=== PATIENT | male | born 1945 | race Caucasian/White ===

== ENCOUNTER → 2019-04-10 07:52 | Outpatient (CLI) | payer MEDICARE | END | disposition home or self-care (01) | LOC: D.HCCARDIO 07:52 | PROVIDERS: ATTEND Internal Medicine Cardiovascular Disease | DX: I20.9 Angina pectoris, unspecified (principal) ==

== ENCOUNTER 2019-04-30 07:08 | Outpatient (CLI) | payer MEDICARE ==
[~2019-04-30] VITALS: Ht 172.7 cm; Wt 90.9 kg
--- NOTE | ~2019-04-30 | HEMODYNAMI ---
PATIENT:LUIS HILL JR MEDICAL RECORD: [id number] : 45 LOCATION:[facility] ADMISSION DATE: 04/30/19 Generatedon:04/30/201910:03 Patient name: LUIS HILL Patient #: [id number] SSN: DO B: 1945 Date of study: 04/30/2019 Page: Of Hemodynamic Procedure Report Patient Data Patient Demographics Procedure consent was obtained First Name: LUIS Gender: Male Last Name: LIZ Suffix: Patient #: [id number] : 1945 Age: 73 year(s) Accession #: Race: Unknown [id number] Additional ID: [id number] Contact details [address]: [address] [place] [address] lane State: [place] City: [place] Zip code: [address] Past Medical History Performed procedures and imaging results Date Procedure Procedure Results Comments Stress testing with Positive SPECT MPI Allergies Allergen Reaction Date Comments Reported Penicillins 04/30/2019 Admission Admission Data Admission Date: 04/30/2019 Admission Time: 7:08 Arrival Date: 04/30/2019 Arrival Time: 0:00 Admit Source: Other Insurance Payor: Medicare [facility] #: [id number] Height (in.): 67.72 BSA: 2.04 (m2) Height (cm.): 172 BMI: 30.76 (kg/m2) Weight (lbs.): 200.62 Weight (kg.): 91 Lab Results Lab Result Date: 04/30/2019 Lab Result Time: 0:00 Biochemistry Name Units Result Min Max BUN mg/dl 22 --(----)-* 7 18 Creatinine mg/dl 1.6 --(----)-* 0.6 1.3 eGFR ml/min 45 *-(----)-- 90 120 NONAFRICAN CBC Name Units Result Min Max Hematocrit % 41.5 -*(----)-- 42 54 Hemoglobin g/dl 15 --(-*--)-- 13.5 17.5 Procedure Procedure Types Cath Procedure Diagnostic Procedure LHC Coronaries only Aortic Root Angiography Sedation Charges Moderate Sedation up to 15 minutes Procedure Description Procedure Date Procedure Date: 04/30/2019 Procedure Start Time: 9:43 Procedure End Time: 10:02 Procedure Staff Name Function Christopher Lee MD Performing Physician Lesli Ferguson RT Monitor Suzan Taylor RT Scrub Rupert Villatoro RT Scrub Inocencio Hamilton RN Nurse Procedure Data Cath Procedure Fluoroscopy Diagnostic fluoroscopy Total fluoroscopy Time: 5.1 time: 5.1 min min Diagnostic fluoroscopy Total fluoroscopy dose: 763 dose: 763 mGy mGy Contrast Material Contrast Material Type Amount (ml) Isovue 300 85 Entry Location Entry Primary Successful Side Size Upsize Upsize Entry Closure Jesus ccessful Closure Location (Fr) 1 (Fr) 2 (Fr) Remarks Device Remarks Radial Right 6 Fr Mechanical artery Short Compression Estimated blood loss: 10 ml Diagnostic catheters Device Type Used For End Catheter Placement DIAGNOSTIC Brainard 110cm 5 Procedure Fr catheter ([id number]) DIAGNOSTIC Pigtail 5Fr Procedure catheter ([id number]) Procedure Complications No complications Procedure Medications Medication Administration Route Dosage Oxygen etCO2 Nasal cannula 2 l/min Lidocaine 2% added to field 20 Heparin Flush Bag added to field 2 bags (1000units/500ml NS) 0.9% NaCl I.V. 100 ml/hr Radial Cocktail I.A. 1 syringe (Verapamil 2mg/Nitro 400mcg/Heparin 1500units) Versed I.V. 1 mg Versed I.V. 1 mg Fentanyl I.V. 50 mcg Fentanyl I.V. 50 mcg Hemodynamics Rest BSA: 2.04 (m2) HGB: 15 (g/dl) O2 Consumption: Estimated: 230.61 (ml/min) O2 Cons umption indexed: Estimated:113.04 (ml/min/m) Heart Rate: 64 (bpm) Snapshots Pre Cath Intra NCS Post Cath Vital Signs Time Heart Resp SPO2 etCO2 NIBP Rhythm Pain Sedation Rate (ipm) (%) (mmHg) (mmHg) Status Level (bpm) 9:29:53 62 12 94 0 130/78(93) NSR 0 (11) 10(A) , No pain 9:34:07 64 13 94 34.4 121/69(99) NSR 0 (11) 10(A) , No pain 9:38:18 64 13 97 0 121/74(89) NSR 0 (11) 10(A) , No pain 9:42:29 66 12 96 19.4 123/66(87) NSR 0 (11) 9(A) , No pain 9:46:43 67 10 95 0 118/63(79) NSR 0 (11) 9(A) , No pain 9:50:51 70 10 95 12.7 112/58(77) NSR 0 (11) 9(A) , No pain 9:54:59 76 16 97 25.4 112/68(92) NSR 0 (11) 10(A) , No pain 9:59:09 67 14 98 36.7 118/60(85) NSR 0 (11) 10(A) , No pain Medications Time Medication Route Dose Verified Delivered Reason Notes Effectiveness by by 9:28:59 Oxygen etCO2 2 l/min Christopher Buffie used for Nasal Jesus Hamilton RN procedure cannula 9:29:07 Lidocaine 2% added 20ml Christopher Christopher for local to vial Jesus Lee MD anesthetic field 9:29:13 Heparin Flush added 2 bags Christopher Christopher used for Bag to Jesus Lee MD procedure (1000units/500ml field NS) 9:29:24 0.9% NaCl I.V. 100 Christopher Buffie Per ml/hr Jesus Hamilton RN physician 9:36:20 Versed I.V. 1 mg Christopher Buffie for sedation Jesus Hamilton RN 9:36:27 Fentanyl I.V. 50 mcg Christopher Buffie for sedation Jesus Hamilton RN 9:46:32 Radial Cocktail I.A. 1 Christopher Christopher for (Verapamil syringe Jesus Lee MD vasodilation 2mg/Nitro 400mcg/Heparin 1500units) 9:47:21 Versed I.V. 1 mg Christopher Buffie for sedation Jesus Hamilton RN 9:47:28 Fentanyl I.V. 50 mcg Christopher Buffie for sedation Jesus Hamilton RN Procedure Log Time Note 9:09:41 Procedure Status Elective Heart Cath (OP). 9:09:42 Time tracking: Regular hours (M-F 7:00 - 5:00) 9:09:50 Plan of Care:Hemodynamics will remain stable., Cardiac rhythm will remain stable., Comfort level will be maintained., Respiratory function will remain adequate., Patient/ family verbilizes understanding of procedure., Procedure tolerated without complication., Recovers from procedure without complications.. 9:09:51 Signed procedure consent form obtained from patient. 9:10:04 H&P Date Dictated: 03/31/2019 Within 30 days and on chart., H&P Addendum completed by physician on day of procedure. (MUST COMPLETE FOR ALL OUTPATIENTS). 9:10:10 Patient allergic to Penicillins 9:10:52 Patient Weight : 200.62 lbs 9:11:02 Patient Height : 67.72 inches 9:11:34 Lab Result : eGFR NONAFRICAN 45 ml/min 9:11:34 Lab Result : Hemoglobin 15 g/dl 9::34 Lab Result : BUN 22 mg/dl 9::34 Lab Result : Creatinine 1.6 mg/dl 9:11:34 Lab Result : Hematocrit 41.5 % 9:12:57 Suzan LARKIN(R) sent for patient. Start room use. 9:15:50 Arrival Date: 04/30/2019 12:00:00 AM 9:16:10 Insurance Payor : Medicare 9:16:14 Admit Source: Other 9:16:24 Diagnostic Cath Status : Elective 9:16:25 PCI Cath Status : Elective 9:20:36 Patient received from Pre/Post Procedure Room to CCL 1 Alert and oriented. Tansferred to table in Supine position. 9:20:37 Warm blankets applied, and trey hugger turned on for patient comfort. 9:20:38 Correct patient and procedure confirmed by team. 9:20:39 ECG and BP/O2 sat monitors applied to patient. 9:23:15 Pre-procedure instructions explained to patient. 9:23:16 Pre-op teaching completed and patient verbalized understanding. 9:23:19 Family in waiting room. 9:23:20 Patient NPO since Midnight. 9:23:24 Is the patient allergic to Iodine/contrast media? No. 9:23:59 Is patient on blood thinner?No 9:24:03 ACC The patient was administered the following blood thiners within the last 24 hours: None 9:25:21 Patient diabetic? No. 9:25:25 Previous problem with sedation/anesthesia? No ? 9:25:27 Snore? Yes 9:25:29 Sleep apnea? No 9:25:30 Deviated septum? No 9:25:32 Opens mouth fully? Yes 9:25:32 Sticks out tongue? Yes 9:25:44 Airway obstruction? Yes Asthma 9:25:49 Dentures? No ? 9:25:54 Pre procedure: right dorsailis pedis pulse 1+ Palpable, but thready & weak; easily obliterated 9:26:00 Modified Kalin's test Ulnar < 7 seconds 9:26:01 Patient pain scale 0/10 ?. 9:26:07 IV patent on arrival in left antecubital with 0.9% NaCl at [facility]. 9:26:13 Lab results completed and on chart. 9:26:46 Right groin area was prepped with chlora-prep and draped in sterile fashion 9:26:47 Alarms reviewed by R. N. 9:26:48 Sharps counted by scrub and verified by R.N. 9:27:00 Use device set Radial Dx or PCI 9:27:02 Tegaderm 4 x 4 (1626W) opened to sterile field. 9:27:03 ACIST Manifold (11267) opened to sterile field. 9:27:05 ACIST Hand Control (11131) opened to sterile field. 9:27:06 Bag Decanter (2002S) opened to sterile field. 9:27:06 ACIST Syringe (41992) opened to sterile field. 9:27:07 Medline Cath Pack ([id number]) opened to sterile field. 9:27:08 MBrace Wrist Support ([id number]) opened to sterile field. 9:27:15 NEEDLE Cook 21G 4cm Radial (I43603) opened to sterile field. 9:27:23 EMERALD Guide Wire (502-803) opened to sterile field. 9:27:23 SHEATH 6FR RAIN ([id number]) opened to sterile field. 9:28:49 Vital chart was started 9:28:59 Oxygen 2 l/min etCO2 Nasal cannula was administered by Inocencio Hamilton RN; used for procedure; 9:29:07 Lidocaine 2% 20ml vial added to field was administered by Christopher Lee MD; for local anesthetic; 9:29:13 Heparin Flush Bag (1000units/500ml NS) 2 bags added to field was administered by Christopher Lee MD; used for procedure; 9:29:24 0.9% NaCl 100 ml/hr I.V. was administered by Inocencio Hamilton RN; Per physician; 9:30:43 Baseline sample Acquired. ::48 Rhythm: sinus rhythm 9::49 Full Disclosure recording started 9:35:48 --------ALL STOP TIME OUT------ 9:35:49 Final Timeout: patient, procedure, and site verified with staff and physician. All members of the team are in agreement. 9:35:50 Right Radial & Right Groin site verified by team. 9:35:53 Fire Safety Assessment: A--An alcohol-based skin anteseptic being used preoperatively., C--Open oxygen or nitrous oxide is being used., D--An ESU, laser, or fiber-optic light is being used. 9:35:56 Physical assessment completed. ASA score P 2 - A patient with mild systemic disease as per Christopher Lee MD. 9:36:11 3a) 45-59 Moderately reduced kidney function. 9:36:16 Maximum allowable contrast dose (3.7 X eGFR X 0.75)118 ml. 9:36:19 Sedation plan: IV Moderate Sedation Medication:Versed, Fentanyl 9:36:20 Versed 1 mg I.V. was administered by Inocencio Hamilton RN; for sedation; 9:36:27 Fentanyl 50 mcg I.V. was administered by Inocencio Hamilton RN; for sedation; 9:42:32 Procedure started. 9:42:34 Zero performed for pressure channel P1 9:43:15 Local anesthetic to right radial artery with Lidocaine 2% by Christopher Lee MD.INITIAL ACCESS ONLY 9:44:44 A 6 Fr Short sheath was inserted into the Right Radial artery 9:45:31 Baseline sample Acquired. 9:46:06 A DIAGNOSTIC Brainard 110cm 5 Fr catheter ([id number]) was advanced over the wire and used for Procedure. 9:46:32 Radial Cocktail (Verapamil 2mg/Nitro 400mcg/Heparin 1500units) 1 syringe I.A. was administered by Christopher Lee MD; for vasodilation; 9:47:21 Versed 1 mg I.V. was administered by Inocencio Hamilton RN; for sedation; 9:47:28 Fentanyl 50 mcg I.V. was administered by Inocencio Hamilton RN; for sedation; 9:50:32 LCA angiography performed. 9:53:28 RCA angiography performed. 9:53:31 Catheter exchanged over wire. 9:53:54 A DIAGNOSTIC Pigtail 5Fr catheter ([id number]) was advanced over the wire and used for Procedure. 9:55:52 Aortic Root visualized 9:56:45 UNABLE TO CROSS VALVE 9:57:23 Catheter removed. 9:57:47 ZEPHYR REGULAR TR BAND (361820) opened to sterile field. 9:57:55 Procedure ended.(Physican Out) 9:58:07 Sheath removed intact; hemostasis achieved with Mechanical Compression to the Right Radial artery. 10:00:06 Fluoroscopy time 05.10 minutes. 10:00:11 Fluoroscopy dose: 763 mGy 10:00:11 Flurop Dose total: 763 10:00:19 Dose Area Product 78865 mGy/cm. 10:00:25 Contrast amount:Isovue 300 85ml. 10:00:28 Maximum allowable dose exceeded? No. 10:00:29 Sharps counted by scrub and verified by R.N. 10:00:31 TR band inflated with 8cc of air. 10:00:34 Insertion/operative site no bleeding no hematoma. 10:00:37 Post-procedure physical assessment completed. ASA score P 2 - A patient with mild systemic disease as per Christopher Lee MD. 10:00:40 Post procedure rhythm: sinus rhythm 10:00:44 Estimated blood loss: 10 ml 10:00:46 Post procedure instruction explained to patient.Patient verbalizes understanding. 10:00:46 Patient needs reinforcement of post procedure teaching. 10:01:16 Procedure type changed to Cath procedure, Diagnostic procedure, LHC, Coronaries only, Aortic Root Angiography, Sedation Charges, Moderate Sedation up to 15 minutes 10:02:24 Procedure and supply charges have been captured, reviewed, submitted and are correct. 10:02:25 Vital chart was stopped 10::28 Procedure Complication : No complications 10::29 See physician's report for complete and final results. 10:02:31 Report given to Pre/Post Procedure Room. 10:02:33 Patient transfered to Pre/Post Procedure Room with Bed. 10:02:36 Procedure ended. 10:02:36 Full Disclosure recording stopped 10:02:41 End room use (Document Last) Device Usage Item Name Manufacture Quantity Catalog Hospital Part Current Minima l Lot# / Number Charge Number Stock Stock Serial# Code Tegaderm 4 3M 1 1626W [id number] 5 x 4 (1626W) ACIST Acist 1 19673 041824 818715 073083 5 Manifold Medical (34022) Systems Inc ACIST Hand Acist 1 22663 340182 843690 634018 5 Control Medical (28291) Systems Inc Bag Microtek 1 2001S 099342 31195 187489 5 Decanter Medical Inc. (2001S) ACIST Acist 1 97304 965219 169511 996553 20 Syringe Medical (30635) Systems Inc Medline Medline 1 [id number] 676760 29648 080521 5 Cath Pack ([id number]) MBrace Advanced 1 140-0250-00 562162 31644 011628 5 Wrist Vascular Support Dynamics ([id number]) NEEDLE Cook Cook Medical 1 C31865 766618 436662 982041 5 21G 4cm Radial (R39379) EMERALD Cardinal 1 502-455 718899 090070 552335 5 Guide Wire Health (502455) SHEATH 6FR Cardinal 1 7746944 162316 4588257 459822 5 [facility] (2320134) DIAGNOSTIC Terumo 1 40-2943 162103 623170 247318 5 Brainard 110cm 5 Fr catheter (522204) DIAGNOSTIC Cardinal 1 [id number] 035232 783907 514803 5 Pigtail 5Fr Health catheter (048198S) ZEPHYR Cardinal 1 649657 742350 2727068 359661 5 REGULAR TR Health BAND (647167) Signature Audit [place] Stage Time Signature Unsigned Intra-Procedure 04/30/2019 Lesli Ferguson 10:03:37 AM RT(R) Signatures Performing Physician : Signature : Christopher Lee MD Date : Time : Monitor : Lesli Ferguson Signature : RT Date : Time : Nurse : Inocencio Hamilton RN Signature : Date : Time : [address] [place] [address]
[2019-04-30] MEDS ORDERED: COZAAR100 MG PO (07:47)
[2019-04-30] MEDS ORDERED: CARDURA2 MG PO (07:47)
[2019-04-30] MEDS ORDERED: NEXIUM40 MG PO (07:47)
[2019-04-30] MEDS ORDERED: CO Q-10200 MG PO (07:48)
[2019-04-30] MEDS ORDERED: ULTRAM50 MG PO (07:48)
[2019-04-30] MEDS ORDERED: ACETAMINOPHEN500 M1 PO (07:49)
[2019-04-30] MEDS ORDERED: MELATONIN10 M1 PO (07:49)
[2019-04-30] MEDS ORDERED: CLARITIN 10 MG10 MG PO (07:49)
[2019-04-30 08:03] VITALS: BP 154/77; Ht 172.7 cm; Wt 90.9 kg
[2019-04-30 08:11] LABS: BASOPHILS 0.2 % (0-2); EOSINOPHILS 3.5 % (0-7); HEMATOCRIT 41.5 % (42.0-54.0); IMMATURE GRANULOCYTES 0.2 % (0-5); LYMPHOCYTES 29.4 % (15-50); MCH 32.1 pg (26.0-34.0); MCHC 36.1 g/dL (31.0-37.0); MCV 88.7 fL (80.0-100.0); MEAN PLATELET VOLUME 11.7 fL (7.4-10.4); MONOCYTES 13.2 % (2-11); NEUTROPHILS 53.5 % (40-80); PLATELET COUNT 133 10x3/uL (130-400); RBC 4.68 10x6/uL (4.20-6.10); RDW 13.6 % (11.5-14.5); WBC 4.6 10x3/uL (4.8-10.8)
[2019-04-30 08:19] LABS: ANION GAP 9.8 mmol/L (8-16); CALCIUM 9.4 mg/dL (8.5-10.1); CARBON DIOXIDE 29.3 mmol/L (21.0-32.0); CREATININE - SERUM 1.6 mg/dL (0.6-1.3); POTASSIUM - SERUM 4.1 mmol/L (3.5-5.1)
[2019-04-30 08:30] LABS: CHOL - HDL RATIO 5.9 ratio (2.3-4.9); LDL-HDL RATIO 3.3 ratio (1.5-3.5)
--- NOTE | 2019-04-30 10:15 | NUR ---
PT RECEIVED FROM [facility] VIA STRETCHER FOR RECOVERY. PT AWAKE BUT DROWSY. PT DENIES PAIN OR DISCOMFORT. IV PATENT INFUSING VIA ORDERS. ZEPHOR BAND AND IMMOBILIZER TO R WRIST, NO BLEEDING OR HEMATOMA NOTED. ARM PINK AND WARM, CAP REFILL BRISK. DR BUNCH AT DISCUSSING PROCEDURE RESULTS AND PLAN OF CARE. AT BEDSIDE, CALL LIGHT IN REACH
--- NOTE | 2019-04-30 10:45 | NUR ---
PT RESTING COMFORTABLY, DENIES PAIN OR NEEDS. Z BAND IN PLACE, DRESSING CDI NO BLEEDING OR SWELLING NOTED. ARM PINK AND WARM, CAP REFILL BRISK. CALL LIGHT IN REACH, FAMILY AT BEDSIDE
--- NOTE | 2019-04-30 11:15 | NUR ---
Z BAND AIR REMOVAL BEGAN PER PROTOCOL, 3 CC REMOVED W NO BLEEDING OR SWELLING NOTED. VSS. FAMILY REMAIN AT BEDSIDE, CALL LIGHT IN REACH
--- NOTE | 2019-04-30 11:34 | NUR ---
PT SITTING UP VISITING W FAMILY. Z BAND AND IMMOBILIZER IN PLACE, NO BLEEDING OR HEMATOMA NOTED. ARM PINK AND WARM, CAP REFILL BRISK. VSS. FAMILY REMAINS AT BEDSIDE, CALL LIGHT IN REACH.
--- NOTE | 2019-04-30 12:10 | NUR ---
DISCHARGE TEACHING REVIEWED W PT AND FAMILY, THEY VERBALIZED UNDERSTANDING. INSTRUCTED THAT THEY WOULD RECEIVED A CALL FROM DR WANG'S OFFICE FOR AN APPT. IV REMOVED W CATH INTACT. REMAINING AIR REMOVED FROM Z BAND , NO BLEEDING OR HEMATOMA NOTED. MONITORS AND O2 REMOVED. PT UP TO DRESS FOR DISCHARGE
--- NOTE | 2019-04-30 12:21 | NUR ---
PT DISCHARGED VIA WC TO SON WAITING IN PRIVATE VEHICLE. PT HAS ALL BELONGINGS.
== END 2019-04-30 12:20 | disposition home or self-care (01) ==
LOC: D.CATH 07:08
PROVIDERS: ATTEND Internal Medicine Cardiovascular Disease
DX: I25.119 Atherosclerotic heart disease of native coronary artery with unspecified angina pectoris (principal); I35.1 Nonrheumatic aortic (valve) insufficiency; I70.0 Atherosclerosis of aorta; Z01.812 Encounter for preprocedural laboratory examination

== ENCOUNTER 2019-05-08 09:00 | Inpatient (IN) | payer MEDICARE ==
[~2019-05-08] VITALS: Ht 172.7 cm; Wt 89.7 kg
[~2019-05-08 09:00] MED LIST: ACETAMINOPHEN500 M1 PO; CARDURA2 MG PO; CLARITIN 10 MG10 MG PO; CO Q-10200 MG PO; COZAAR100 MG PO; MELATONIN10 M1 PO; NEXIUM40 MG PO; ULTRAM50 MG PO
[2019-05-08] MEDS ORDERED: BANOPHEN25 M1 (10:21)
[2019-05-08] MEDS ORDERED: MAGNESIUM OXID250 MG (10:23)
[2019-05-08] MEDS ORDERED: PROBIOTIC BLEN1 EACH (10:28)
[2019-05-08] MEDS ORDERED: CBD TINCTURE SL (10:30)
[2019-05-08 12:05] LABS: BASOPHILS 0.8 % (0-2); EOSINOPHILS 3.8 % (0-7); HEMATOCRIT 41.4 % (42.0-54.0); HEMOGLOBIN 14.7 g/dL (13.5-17.5); IMMATURE GRANULOCYTES 0.2 % (0-5); LYMPHOCYTES 32.5 % (15-50); MCHC 35.5 g/dL (31.0-37.0); MONOCYTES 12.4 % (2-11); NEUTROPHILS 50.3 % (40-80); PLATELET COUNT 140 10x3/uL (130-400); RDW 13.6 % (11.5-14.5); WBC 4.8 10x3/uL (4.8-10.8)
[2019-05-08 12:16] LABS: APTT 29.6 SECONDS (22.8-39.4); INR 0.96 (0.85-1.17); PROTIME 12.2 SECONDS (11.6-15.0)
[2019-05-08 12:23] LABS: APPEARANCE CLEAR (CLEAR); BILIRUBIN NEGATIVE (NEGATIVE); COLOR YELLOW (YELLOW); GLUCOSE NEGATIVE (NEGATIVE); KETONE NEGATIVE (NEGATIVE); NITRITE NEGATIVE (NEGATIVE); PROTEIN NEGATIVE (NEGATIVE); SPECIFIC GRAVITY 1.015 (1.005-1.020); UROBILINOGEN NORMAL (NORMAL)
[2019-05-08 12:54] LABS: ALBUMIN 3.5 g/dL (3.4-5.0); ANION GAP 12.5 mmol/L (8-16); BILIRUBIN - TOTAL 0.6 mg/dL (0.2-1.3); CALCIUM 8.9 mg/dL (8.5-10.1); CARBON DIOXIDE 29.1 mmol/L (21.0-32.0); CREATININE - SERUM 1.8 mg/dL (0.6-1.3); PHOSPHOROUS 3.2 mg/dL (2.5-4.9); POTASSIUM - SERUM 4.6 mmol/L (3.5-5.1); PROTEIN - SERUM 7.2 g/dL (6.4-8.2); T4 THYROXIN - FREE 0.79 ng/dL (0.76-1.46); THYROID STIMULATING HORMONE 1.77 uIU/mL (0.36-3.74); URIC ACID 5.7 mg/dL (2.6-7.2)
[2019-05-15] VITALS (41 sets, daily range): BP systolic 98–140; BP diastolic 51–70; BMI 30.9
--- NOTE | 2019-05-15 13:55 | NUR ---
ARRIVED IN THE UNIT. PT SEDATED ON THE VENT. ETT 8.0 24 AT THE LIP. SEE VENT SETTINGS PER RT FLOW SHEET. RIGHT IJ SWAN NOTED 46CM AT THE NECK AND SECURED. NSR ON THE MONITOR. MIDSTENAL DRESSING C/D/I. SUBSTERNAL DRESSING C/D/I WITH CT LABLED A AND P NOTED TO 20 CM OF H2O SUCTION WITH NO AIR LEAK NOTED. BLOODY DRAINAGE NOTED. LEFT SUBSTERNAL COLT DRAIN NOTED. COMPRESSED WITH BLOODY DRAINAGE NOTED. 20 GAUGE IV NOTED TO LEFT AC C/D/I AND PATENT. NO S/SX OF INFILTRATION NTOED. LEFT RADIAL DESMOND NOTED WITH THE WRIST PROTECOR ON WT CAP REFILL <3 SECONDS. FC NOTED WITH CLEAR, YELLOW URINE. RLE WRAPPED IN KOBAN FROM ANKLE TO GROIN. PULSES PALPABLE. PT ON PRERNA PLASMALYTE AND DOPAMINE. SEE IV FLOW SHEET. WILL CONT 1:1 CARE.
--- NOTE | 2019-05-15 14:03 | NUR ---
DR WANG AT THE PTS BEDSIDE. WEEN PRERNA AND START NITRO IF POSSIBLE. PARAMETER 90-140
--- NOTE | 2019-05-15 14:10 | NUR ---
GIVE 1 AMP OF HCO3 PER DR WANG.
--- NOTE | 2019-05-15 14:30 | NUR ---
CLARIFIED WITH DR WANG. WEEN DOPAMINE OFF, NO AMIODORONE IV OR PO, ONCE EXTUBATED, DC SWAN-ELLEN CATHETER.
--- NOTE | 2019-05-15 18:29 | NUR ---
PT EXTUBATED PER RT. PT PLACED ON 4L VIA NC. PT TOLERATING WELL. PT INSTRUCTED TO COUGH. VERY WEAK COUGH NOTED. PULLS ABOUT 500 ON HIS IS. CALL LIGHT IN REACH. WILL CONT POC.
--- NOTE | 2019-05-15 19:30 | NUR ---
RECEIVED PATIENT IN BED. AWAKE AND ALERT. ORIENTED X 4 WITH CLEAR SPEECH. MONITORS CONNECTED TO PATIENT WITH ALARMS SET. VSS. ANTERIOR/POSTERIOR CX TUBES INTACT WITH COLLECTION CHAMBER SECURED BELOW PATIENT CONNECTED TO 20CM SUCTION. ASSESSMENT COMPLETED PER FLOW SHEET WITH NO ACUTE DISTRESS OBSERVED AT PRESENT.
--- NOTE | 2019-05-15 21:00 | NUR ---
FAMILY AT BEDSIDE, UPDATE GIVEN. PATIENT AWAKE AND ALERT. VSS
--- NOTE | 2019-05-15 23:00 | NUR ---
REASSESSMENT COMPLETED WITH NO CHANGES OR ACUTE DISTRESS OBSERVED. VSS
[2019-05-16] VITALS (26 sets, daily range): BP systolic 110–134; BP diastolic 47–76; Ht 172.7 cm; Wt 89.7 kg
--- NOTE | 2019-05-16 01:00 | NUR ---
RESTING WITH EYES CLOSED. EASILY ROUSED AND ALERT. VSS. NO ACUTE DISTRESS OBSERVED.
--- NOTE | 2019-05-16 03:00 | NUR ---
RESTING WITH EYES CLOSED, ROUSES EASILY. VSS
[2019-05-16 06:01] LABS: HEMATOCRIT 35.5 % (42.0-54.0); HEMOGLOBIN 12.6 g/dL (13.5-17.5); MCH 31.8 pg (26.0-34.0); MCHC 35.5 g/dL (31.0-37.0); MCV 89.6 fL (80.0-100.0); MEAN PLATELET VOLUME 11.1 fL (7.4-10.4); RBC 3.96 10x6/uL (4.20-6.10); RDW 13.9 % (11.5-14.5); WBC 8.7 10x3/uL (4.8-10.8)
[2019-05-16 06:11] LABS: ALBUMIN 2.4 g/dL (3.4-5.0); ANION GAP 9.5 mmol/L (8-16); BILIRUBIN - TOTAL 0.43 mg/dL (0.2-1.3); CARBON DIOXIDE 31.1 mmol/L (21.0-32.0); CREATININE - SERUM 1.5 mg/dL (0.6-1.3); POTASSIUM - SERUM 4.6 mmol/L (3.5-5.1)
[2019-05-16 06:12] LABS: CALCIUM 6.9 mg/dL (8.5-10.1)
--- NOTE | 2019-05-16 06:20 | NUR ---
SPOKE WITH DR. WANG. NOTIFIED OF LOW CALCIUM NO NEW ORDERS
--- NOTE | 2019-05-16 10:00 | NUR ---
oral care done
--- NOTE | 2019-05-16 12:43 | OP ---
PATIENT NAME: LUIS HILL JR MEDICAL RECORD: [id number] :45 LOCATION:D.CVI D.CV02 ADMISSION DATE:05/15/19 SURGEON: LAUREANO WANG MD DATE OF OPERATION: 05/15/2019 SURGEON: Laureano Wang MD ARMED SECURITY OFFICER: HERNAN Flowers MD and Sandor Israel. OPERATION PERFORMED: 1. Coronary artery bypass graft times 4 (left internal mammary to LAD, reverse saphenous vein graft from aorta to obtuse marginal, from the side of that vein graft to the first diagonal distally, and from aorta to right coronary artery). 2. Endoscopic saphenous vein harvest. PREOPERATIVE DIAGNOSES: Coronary artery disease and aortic stenosis. POSTOPERATIVE DIAGNOSES: Coronary artery disease and aortic stenosis. ANESTHESIA: General endotracheal anesthesia. ESTIMATED BLOOD LOSS: Total cardiopulmonary bypass with Cell Saver retransfusion. COMPLICATIONS: None. SPECIMENS: None. CONDITION: Stable. DISPOSITION: CV ICU. OPERATIVE FINDINGS: 1. Transesophageal echocardiography revealed only mild aortic stenosis with some calcification, but less than one meter per second maximal velocity and greater than 1.8 cm-squared valve area. 2. Good quality greater saphenous vein harvested endoscopically from the right lower extremity, the smallest caliber portion from the lower leg was used for the diagonal graft. 3. Good quality left internal mammary artery. 4. Severe distal disease of all vessels. 5. LAD 1.5 mm. 6. Obtuse marginal 2.0 mm. 7. First diagonal 1.25 mm. 8. Right coronary artery 2.0 mm with a long onlay distal patch. OPERATIVE INDICATION: Coronary artery disease and unstable angina. PROCEDURE NOTE IN DETAIL: The patient was brought to the operating suite. General anesthesia was obtained. The patient was prepped and draped. Greater saphenous vein harvested endoscopically at right lower extremity. Side branch was divided with electrocautery. The vessel was ligated proximal and distally, removed. Side branches were tied. A varicosity in the middle was removed. Thin spots were oversewn. Dr. Flowers performed the vein harvest, inspected the vein, oversewed the thin spot and the use of mri assistant surgeon saved OPERATIVE REPORT [id number] SUZI HILLLeny IVEY approximately 1 hour of general anesthetic time. Median sternotomy incision was made. Subcutaneous tissue was divided with electrocautery. Sternum was divided with a saw. The left hemisternum was elevated. Left pleural cavity was entered. Left internal mammary vein was taken down as a pedicle graft. Sternal retractor was placed. Pericardium was opened. Heparin was given. Aorta was cannulated. Dual stage venous cannula was inserted. Internal mammary clipped distally and made ready for anastomosis. Activated clotting time was appropriately elevated. The patient was placed on cardiopulmonary bypass. The site for distal anastomosis was selected. The patient's temperature was allowed to drift downwardly. Aortic root vent was placed. Cross-clamp was placed. Cardioplegia was given antegrade and this was repeated at 15 to 20 minute intervals during the cross-clamp time including down the completed vein graft. Distal anastomosis was performed in standard technique. Proximal anastomosis with single cross-clamp technique. Aortic root was de-aired by removing the cross-clamp tying the proximal anastomosis, de-airing the vein grafts. Proximal and distal anastomotic sites inspected for bleeding. A single [id number] anastomosis performed from the diagonal graft to the side of the obtuse marginal graft. The patient was fully rewarmed, weaned from cardiopulmonary bypass and was stable. The patient was decannulated. Cannulation sites were oversewn. Protamine was given. The irrigation was undertaken. The graft lay appropriately. Hemostasis was ensured. A drain was placed in the mediastinum and left pleural cavity, one with the tip in the right pleural cavity. The ventricular pacing wires were placed. Pericardial fat was loosely reapproximated. Left chest was evacuated and irrigated. Internal mammary harvest site was inspected for bleeding. Sternum was closed with wires. Fascia was closed. Subcutaneous tissue was closed. Skin was closed. Dermabond was placed. The needle and sponge counts reported as correct. The patient was taken to ICU in stable condition. TRANSINT:[id number] Voice Confirmation ID: [id number] DOCUMENT ID: [id number] LAUREANO WANG MD at 1243 CC: HITESH BUNCH M.D. and SHERRILL HDEZ [id number] DICTATION DATE: 05/15/19 1422 OSHA INSPECTOR: 05/15/19 1510 ADM IN [place] [id number] [place] [address]
--- NOTE | 2019-05-16 17:32 | NUR ---
1300-DR WANG AT BEDSIDE-MORPHINE 2MG IVP GIVEN NOW DIRECTED BY DR WANG PREMED FOR CHEST TUBE REMOVAL-CHEST TUBES REMOVED PER PROTOCOL-R CVL SALINE LOCKED-L RADIAL DESMOND D/C-PER PROTOCOL MAI CATH D/C'D PER PROTOCOL
--- NOTE | 2019-05-16 17:40 | NUR ---
1430-AMBULATED WITH PHYSICAL THERAPY-TOLERATED WELL -ASSISTED TO CHAIR-SR ON MONITOR 1730-FAMILY AT BEDSIDE-
--- NOTE | 2019-05-16 19:30 | NUR ---
REPORT RECEIVED. RECEIVED PATIENT IN BED, AWAKE AND ALERT. ORIENTED X 4. SPEECH CLEAR. MONITORS CONNECTED TO PATIENT WITH ALARMS SET. VSS. CALL LIGHT IN REACH AND ABLE TO UTILIZE TO MAKE NEEDS KNOWN. ASSESSMENT COMPLETED PER FLOW SHEET WITH NO ACUTE DISTRESS OBSERVED AT PRESENT .
[2019-05-17] VITALS (23 sets, daily range): BP systolic 104–129; BP diastolic 47–75
--- NOTE | 2019-05-17 01:00 | NUR ---
AWAKE AND ALERT. VSS
[2019-05-17 06:22] LABS: HEMOGLOBIN 12.6 g/dL (13.5-17.5); MCH 31.3 pg (26.0-34.0); MCHC 34.1 g/dL (31.0-37.0); MEAN PLATELET VOLUME 10.4 fL (7.4-10.4); RBC 4.02 10x6/uL (4.20-6.10); RDW 14.3 % (11.5-14.5); WBC 9.9 10x3/uL (4.8-10.8)
[2019-05-17 06:43] LABS: ALBUMIN 2.5 g/dL (3.4-5.0); ANION GAP 9.8 mmol/L (8-16); BILIRUBIN - TOTAL 0.61 mg/dL (0.2-1.3); CALCIUM 7.1 mg/dL (8.5-10.1); CARBON DIOXIDE 29.9 mmol/L (21.0-32.0); CREATININE - SERUM 1.3 mg/dL (0.6-1.3); POTASSIUM - SERUM 4.7 mmol/L (3.5-5.1); PROTEIN - SERUM 5.7 g/dL (6.4-8.2)
--- NOTE | 2019-05-17 15:04 | NUR ---
0730-RECIEVD UP IN CHAIR-RELUCTANT TO DO INCENTIVE SPIROMETRY-WHEN PRESSED TO DO -AVOIDS 0930-AMBULATED WITH PHYSICAL THERAPY-SEE EMAR FLOW SHEET FOR PAIN MANAGEMENT 1130-ATTEMPTED TO ENCOURAGE INCENTIVE SPIROMETRY USAGE BY PT-PT STRESSED "HRTS TO DO AND HAS TO WAIT- 1145-DR WANG AT BEDSIDE AND PT EXPRESSED LARGE AMOUNT OF PAIN ALONG L LATERAL RIBCAGE-DR WANG STATED NORMAL SURGICAL PAIN-USE PAIN MEDICATION AND CONTINUE WITH WALKING AND INCENTIVE SPIROMETRY-PT STATED I AM TRYING [facility]- [facility]OXYCON[facility] 10MG PO GIVEN PREMED FOR PLANNED PT AMBULATION ATI 1415 1415-PT AT BEDSIDE FOR AMBULATION-PT COMPLIANT
--- NOTE | 2019-05-17 23:00 | NUR ---
1899 REPORT RECEIVED CARE ASSUMED. ASSESSMENT DONE SEE FLOW SHEET. PEDAL PULSES MARKED AND PALP+2. VSS. 2100 MEDS GIVEN PER 2299 REASSESSMENT DONE SEE FLOW SHEET. VSS.
[2019-05-18] VITALS (24 sets, daily range): BP systolic 98–120; BP diastolic 53–71
--- NOTE | 2019-05-18 03:00 | NUR ---
0100 WATER PROVIDED PER REQUEST. VSS. 0300 REASSESSMENT DONE SEE FLOW SHEET VSS. CHG BATH PROVIDED. COMPLETE LINEN CHANGE PROVIDED.
--- NOTE | 2019-05-18 05:00 | NUR ---
DAILY WEIGHT COLLECTED. IO COLLECTED. VSS.
[2019-05-18 05:08] LABS: HEMATOCRIT 33.8 % (42.0-54.0); HEMOGLOBIN 11.6 g/dL (13.5-17.5); MCH 31.4 pg (26.0-34.0); MCHC 34.3 g/dL (31.0-37.0); MCV 91.4 fL (80.0-100.0); RBC 3.7 10x6/uL (4.20-6.10); RDW 13.9 % (11.5-14.5)
[2019-05-18 05:18] LABS: WBC 5.4 10x3/uL (4.8-10.8)
[2019-05-18 06:01] LABS: ALBUMIN 2.2 g/dL (3.4-5.0); BILIRUBIN - TOTAL 0.49 mg/dL (0.2-1.3); CALCIUM 7.5 mg/dL (8.5-10.1); CARBON DIOXIDE 30.2 mmol/L (21.0-32.0); CREATININE - SERUM 1.2 mg/dL (0.6-1.3); POTASSIUM - SERUM 4.2 mmol/L (3.5-5.1); PROTEIN - SERUM 5.7 g/dL (6.4-8.2)
--- NOTE | 2019-05-18 07:00 | NUR ---
REPORT RECIEVED FORM THE OFF GOING RN. SEE ASSESSMENT IN THE PTS FLOW SHEET. PT SITTING OOB IN HIS BEDSIDE CHAIR. VSS. NSR/SINUS TACH ON THE MONITOR. RIGHT IJ CVL NOTED C/D/I AND SL. MIDSTERNAL AND SUBSTERNAL DRESSINGS C/D/I. LEFT COLT DRAIN IS COMPRESSED WITH SEROSANGUINEOUS DRAINAGE. RLE INCISIONS NADIA AND WELL APPROIXMATED. PT INSTRUCTED TO USE HIS IS 10X'S/H. PT PULLS ABOUT 500-1000. DENIES PAIN AT THIS TIME. CALL LIGHT IN REACH. WILL CONT POC.
--- NOTE | 2019-05-18 09:43 | NUR ---
PHYSICAL THERAPY AT THE PTS BEDSIDE WALKING WITH THE PT. PT TOLERATED WELL.
--- NOTE | 2019-05-18 11:34 | NUR ---
NANCY BILLINGS PULLED COLT DRAIN AND TPM WIRES PER DR WANG'S ORDERS. PT LYING IN BED AND TOLERATED WELL. WILL CONT POC.
--- NOTE | 2019-05-18 13:35 | NUR ---
PT ASSISTED OOB AND INTO HIS BEDSIDE CHAIR. LUNCH PROVIDED FOR THE PT. PT VSS. WILL CONT POC.
--- NOTE | 2019-05-18 17:01 | NUR ---
DINNER TRAY PROCIED FOR THE PT. VSS. WILL CONT POC.
--- NOTE | 2019-05-18 17:57 | NUR ---
PT VSS. DENIES PAIN. OOB IN CHAIR TALKING TO HIS FAMILY MEMBERS. IN A CHEETFUL MOOD. CALL LIGHT IN REACH. WILL CONT POC.
--- NOTE | 2019-05-18 18:19 | NUR ---
ASSISTED THE PT TO THE BATHROOM. HE VOIDED AND THEN I ASSISTED HIM BACK INTO HIS BED. PT TOLERATED AMBULATION WELL. CALL LIGHT IN REACH. WILL CONT POC.
--- NOTE | 2019-05-18 18:43 | NUR ---
ORAL CARE DONE WITH PERIDEX
[2019-05-19] VITALS (24 sets, daily range): BP systolic 97–148; BP diastolic 48–78
[2019-05-19 06:05] LABS: HEMATOCRIT 29.6 % (42.0-54.0); HEMOGLOBIN 10.2 g/dL (13.5-17.5); MCH 31.2 pg (26.0-34.0); MCHC 34.5 g/dL (31.0-37.0); MCV 90.5 fL (80.0-100.0); MEAN PLATELET VOLUME 10.4 fL (7.4-10.4); RBC 3.27 10x6/uL (4.20-6.10); RDW 13.9 % (11.5-14.5)
[2019-05-19 06:18] LABS: ANION GAP 9.6 mmol/L (8-16); BILIRUBIN - TOTAL 0.38 mg/dL (0.2-1.3); CALCIUM 7.9 mg/dL (8.5-10.1); CARBON DIOXIDE 30.7 mmol/L (21.0-32.0); CREATININE - SERUM 1.3 mg/dL (0.6-1.3); POTASSIUM - SERUM 4.3 mmol/L (3.5-5.1); PROTEIN - SERUM 5.6 g/dL (6.4-8.2)
--- NOTE | 2019-05-19 07:00 | NUR ---
REPORT RECIEVED FROM THE OFF GOING RN. SEE ASSESSMENT IN THE PTS FLOW SHEET. PT LYING IN BED WHENEVER I ARRIVED. PT ASSISTED OOB. PT SELF AMBULATED WITH A SLOW BUT STEADY GAIT THE BATHROOM AND VOIDED. PT THEN WALKED TO THE BEDSIDE CHAIR. VSS. NSR ON THE MONITOR. RIGHT IJ CVL DRESSING C/D/I. MIDSTERNAL AND SUBSTERNAL DRESSING C/D/I. RLE INCISIONS NADIA AND WELL APPROXIMATED. NO S/SX OF INFECTION NOTED. PT INSTRUCTED TO TCDB Q1H AND TO USE IS 10X'S/H. PT PULLS ABOUT 750 TO 1000 ON HIS IS. BREAKFAST TRAY PROVIDED FOR THE PT. CALL LIGHT IN REACH. WILL CONT POC.
--- NOTE | 2019-05-19 09:35 | NUR ---
PHYSCIAL THEARPY AND THE PT AMBULATED AROUND THE "BIG LOOP". PT TOLERATED WELL. VSS. WILL CONT POC.
--- NOTE | 2019-05-19 10:58 | NUR ---
REASSESSMENT COMPLETED. SEE FLOW SHEET.
--- NOTE | 2019-05-19 12:04 | NUR ---
DR FELIPE CASTANEDA. PLAN FOR DC TOMORROW. DC CVL.
--- NOTE | 2019-05-19 13:16 | NUR ---
Nutrition Follow-up: Pt reports appetite improving. Diet: Cardiac PO intake: 20-40% yesterday Wt: 199# Last BM: 05/19 Labs reviewed Meds reviewed Continue current diet as tolerated. RD following.
--- NOTE | 2019-05-19 14:36 | NUR ---
20 GAUGE IV STARTED IN THE RIGHT AC X1 ATTEMPT. PATENT. CVL DC'D WITH THE CATHETER TIP INTACT. DRESSING APPLIED. WILL CONT POC.
--- NOTE | 2019-05-19 16:00 | MORECARE ---
CASE MANAGEMENT DISCHARGE SUMMARY PATIENT: LUIS HILL JR UNIT: [id number] ADM DATE: 05/15/19 AGE: 73 : 45 SEX: M [facility] AUTHOR: MELCHOR LOPEZ PHYSICIAN: REFERRING PHYSICIAN: MUMTAZ WANG MD DATE OF SERVICE: 05/19/19 Discharge Plan Patient Name: LUIS HILL Facility: [facility]:[place] : 1945 Planned Disposition: Home Anticipated Discharge Date: Discharge Date: Expected LOS: Initial Reviewer: [email or web address] Initial Review Date: 05/19/2019 Generated: 05/19/19 4:59 pm Patient Name: LUIS HILL Page 14742 at 1600 All edits/amendments must be made on the electronic document DICTATION DATE: 05/19/19 1559 CARE ASSISTANT: NICO 05/19/19 1559 RPT#: [id number] DC DATE: STATUS: ADM IN [facility] [address] [place] [address] END OF REPORT
--- NOTE | 2019-05-19 16:21 | MORECARE ---
CASE MANAGEMENT DISCHARGE SUMMARY PATIENT: LUIS HILL JR UNIT: [id number] ADM DATE: 05/15/19 AGE: 73 : 45 SEX: M ROOM/BED: D[facility] AUTHOR: JESSICA,DOC PHYSICIAN: REFERRING PHYSICIAN: MUMTAZ WANG MD DATE OF SERVICE: 05/19/19 Discharge Plan Patient Name: LUIS HILL Facility: [facility]:[place] : 1945 Planned Disposition: Home Anticipated Discharge Date: Discharge Date: Expected LOS: Initial Reviewer: [email or web address] Initial Review Date: 05/19/2019 Generated: 05/19/19 5:20 pm Comments DCP- Discharge Planning Updated by [email or web address]: Jamilah Wen on 05/19/19 3:[address] Patient Name: LUIS HILL Admission Status: Elective Accout number: [id number] Admission Date: 05-15-2019 : 1945 Admission Diagnosis:DISEASE OF PERICARDIUM, UNSPECIFIED Attending: MUMTAZ WANG Current LOS: 4 Anticipated DC Date: Planned Disposition: Home Primary Insurance: [employer] MEDICARE PPO or HMO Discharge Planning Comments: CM met with patient at bedside after explaining CM role and obtaining verbal consent. Patient lives at home with his Vonnie where he is independent with his care and plans to return there upon discharge. Patient feels this would be a safe discharge. CM discussed availability / needs of home health and medical equipment. Patient denies any discharge needs at this time. Patient states he will have his family drive him home upon discharge. CM will continue to follow and assist as needed with discharge planning / needs. Roving Technician: Jamilah Wen DCPIA - Discharge Planning Initial Assessment Updated by [email or web address]: Jamilah Wen on 05/19/19 4:14 pm * Is the patient Alert and Oriented? Yes * How many steps to enter\exit or inside your home? 1-3 * PCP LEMUEL * Pharmacy [facility] * Preadmission Environment Home with Family * ADLs Independent * Other Equipment WALKER, W/C * List name and contact numbers for known caregivers / representatives who currently or will assist patient after discharge: VONNIE -SPOUSE - [phone] * Verbal permission to speak to the caregivers and representatives has been obtained from the patient. Yes * Community resources currently utilized None * Additional services required to return to the preadmission environment? No * Can the patient safely return to the preadmission environment? Yes * Has this patient been hospitalized within the prior 30 days at any hospital? No Last DP export: 05/19/19 3:00 p Patient Name: LUIS HILL Page 12981 at 1621 All edits/amendments must be made on the electronic document DICTATION DATE: 05/19/191619 MANAGER INCOME TAX: NICO 05/19/191619 RPT#: [id number] DC DATE: STATUS: ADM IN [facility] [address] [place] [address] END OF REPORT
--- NOTE | 2019-05-19 16:57 | NUR ---
DINNER TRAY PROVIDED FOR THE PT. VSS. WILL CONT POC.
--- NOTE | 2019-05-19 18:41 | NUR ---
ORAL CARE DONE WITH PERIDEX
[2019-05-20] VITALS (13 sets, daily range): BP systolic 116–140; BP diastolic 58–71
[2019-05-20 05:04] LABS: HEMATOCRIT 30.4 % (42.0-54.0); HEMOGLOBIN 10.4 g/dL (13.5-17.5); MCH 30.9 pg (26.0-34.0); MCHC 34.2 g/dL (31.0-37.0); MCV 90.2 fL (80.0-100.0); MEAN PLATELET VOLUME 10.3 fL (7.4-10.4); RBC 3.37 10x6/uL (4.20-6.10); RDW 13.8 % (11.5-14.5); WBC 3.9 10x3/uL (4.8-10.8)
[2019-05-20 05:34] LABS: ALBUMIN 2.2 g/dL (3.4-5.0); ANION GAP 8.2 mmol/L (8-16); BILIRUBIN - TOTAL 0.49 mg/dL (0.2-1.3); CARBON DIOXIDE 29.8 mmol/L (21.0-32.0); CREATININE - SERUM 1.2 mg/dL (0.6-1.3); PROTEIN - SERUM 5.8 g/dL (6.4-8.2)
--- NOTE | 2019-05-20 08:18 | NUR ---
AM MEDS GIVEN WITH NO ISSUES.
[2019-05-20] MEDS ORDERED: PERCOCET 5-3251 TAB PO (08:58)
[2019-05-20] MEDS ORDERED: LIPITOR10 MG PO (09:21)
[2019-05-20] MEDS ORDERED: PLAVIX75 MG PO (09:21)
[2019-05-20] MEDS ORDERED: ASPIRIN EC81 M1 PO (09:22)
[2019-05-20] MEDS ORDERED: LOPRESSOR25 MG PO (09:22)
[2019-05-20] MEDS ORDERED: COLACE100 MG PO (09:23)
--- NOTE | 2019-05-20 12:00 | NUR ---
AND SON HERE AT THE PTS BEDSIDE. PTS LEFT WITH HER SON BECAUSE HER SON WAS HAVING CHEST PAIN "WE ARE GOING TO THE ER AND WE WILL BE RIGHT BACK."
--- NOTE | 2019-05-20 13:18 | NUR ---
DR WANG AT THE PTS BEDSIDE. DR WANG GOING OVER DISCHARGE INSTRUCTIONS WITH THE PT. OK TO DC HOME TODAY.
--- NOTE | 2019-05-20 14:31 | TEE ---
PATIENT:LUIS HILL JR MEDICAL RECORD: [id number] LOCATION:[place] [address] AGE OF PATIENT: 73 ADMISSION DATE: 05/15/19 SEX: M REFERRING PHYSICIAN: INTERPRETING PHYSICIAN: GREGG RAIN MD TRANSESOPHAGEAL ECHOCARDIOGRAM Date: 05/15/19 LATRICIA CHARGE Y INDICATIONS: CABG, WITH POSSIBLE AVR PREMEDICATIONS: PATIENT'S RESPONSE PROCEDURE DOPPLER MEASUREMENTS: LVIT LA PA RA LVOT RVOT Asc. Ao AV Gradient Peak AV Mean AV Area 1.9 MV Gradient Peak MV Mean MV Area INTERPRETATION: Doppler: 2-D: COLOR FLOW DOPPLER NORMAL SALINE STUDY: MISCELLANOUS: DIAGNOSIS: PLAN: Od Grinder Operator:1 Dr. Rian Devulcanizer Head: Freddy BROWER COMMENTS: WANG AND BUNCH PATIENT DATE OF SERVICE: 05/15/2019 PROCEDURE: Transesophageal echo evaluation of valvular structures during bypass surgery. FINDINGS: 1. Left ventricular chamber size is within normal limits. Left ventricular systolic function is normal. Overall ejection fraction estimated at 60%. 2. Left atrium, right atrium, and right ventricular chamber sizes are within TRANSESOPHAGEAL ECHOCARDIOGRAM REPORT [id number] LUIS HILL normal limits. 3. Valvular structures: Aortic valve demonstrates calcific aortic sclerosis, but there is no aortic stenosis, valve area calculates to 1.9 cm-squared. The remaining valvular structures have normal structure and motion. 4. Doppler interrogation only reveals trace aortic insufficiency. No other valvular insufficiency or stenosis. 5. No evidence of pericardial effusion or left ventricular thrombus. TRANSINT:[id number] Voice Confirmation ID: [id number] DOCUMENT ID: [id number] at 1431 CC: [id number] DICTATION DATE: 05/15/19 1552 GANG PUNCH OPERATOR: 05/16/19 0016 ADM IN [facility] [address] [place] [address]
--- NOTE | 2019-05-20 15:35 | NUR ---
PIV DC'D WITH THE CATHETER TIP INTACT. NANCY BILLINGS ALREAD WENT OVER WITH THE PT DC INSTRUCTIONS. MORE DISCHARGE EDUCATION PROVIDED BY ME. NO QUESTIONS AT THIS TIME. ALL PT BELONGINGS ACCOUNTED FOR. PT LEFT IN A PLEASANT MOOD. VSS AT THE TIME OF DISCHARGE. NO S/SX OF DISTRESS/DISCOMFORT NOTED. WILL CONT POC.
--- NOTE | 2019-05-21 09:26 | MORECARE ---
CASE MANAGEMENT DISCHARGE SUMMARY PATIENT: LUIS HILL JR UNIT: [id number] ADM DATE: 05/15/19 AGE: 73 : 45 SEX: M ROOM/BED: D.[facility] AUTHOR: JESSICA,DOC PHYSICIAN: REFERRING PHYSICIAN: MUMTAZ WANG MD DATE OF SERVICE: 05/21/19 Discharge Plan Patient Name: LUIS HILL Facility: [facility]:[place] : 1945 Planned Disposition: Home Anticipated Discharge Date: Discharge Date: 05/20/2019 Expected LOS: Initial Reviewer: [email or web address] Initial Review Date: 05/19/2019 Generated: 05/21/19 10:25 am Comments DCP- Discharge Planning Updated by [email or web address]: Jamilah Wen on 05/19/19 3:[address] Patient Name: LUIS HILL Admission Status: Elective Accout number: [id number] Admission Date: 05-15-2019 : 1945 Admission Diagnosis:DISEASE OF PERICARDIUM, UNSPECIFIED Attending: MUMTAZ WANG Current LOS: 4 Anticipated DC Date: Planned Disposition: Home Primary Insurance: [employer] MEDICARE PPO or HMO Discharge Planning Comments: CM met with patient at bedside after explaining CM role and obtaining verbal consent. Patient lives at home with his Vonnie where he is independent with his care and plans to return there upon discharge. Patient feels this would be a safe discharge. CM discussed availability / needs of home health and medical equipment. Patient denies any discharge needs at this time. Patient states he will have his family drive him home upon discharge. CM will continue to follow and assist as needed with discharge planning / needs. Front Desk Monitor: Jamilah Wen DCPIA - Discharge Planning Initial Assessment Updated by [email or web address]: Jamilah Wen on 05/19/19 4:14 pm * Is the patient Alert and Oriented? Yes * How many steps to enter\exit or inside your home? 1-3 * PCP LEMUEL * Pharmacy [facility] * Preadmission Environment Home with Family * ADLs Independent * Other Equipment WALKER, W/C * List name and contact numbers for known caregivers / representatives who currently or will assist patient after discharge: VONNIE -SPOUSE - [phone] * Verbal permission to speak to the caregivers and representatives has been obtained from the patient. Yes * Community resources currently utilized None * Additional services required to return to the preadmission environment? No * Can the patient safely return to the preadmission environment? Yes * Has this patient been hospitalized within the prior 30 days at any hospital? No Coverage Notice Reviewer: [email or web address] Jourdan Wen Notice Issued Date-Time: 05/20/2019 13:10 Notice Type: IM Discharge Notice Notice Delivered To: Patient Relationship to Patient: Self Equipment Installer Name: Delivery Method: HAND - Hand Delivered Kerri Days: Prior Verbal Notification: Recipient Understood Notice: Yes Recipient Signature: Yes Med Rec Note Co-signed by Attending: Coverage Notice Comment: Last DP export: 05/19/19 3:21 p Patient Name: LUIS HILL Page 72231 at 0926 All edits/amendments must be made on the electronic document DICTATION DATE: 05/21/19924 CREDIT DIRECTOR: NICO 05/21/19924 RPT#: [id number] DC DATE:05/20/19 STATUS: DIS IN [facility] [address] [place] [address] END OF REPORT
== END 2019-05-20 15:37 | disposition home or self-care (01) | DRG 236 ==
LOC: D.SDCHOLD 10:00 → D.CVICU 05-15 05:17 → D.SDCHOLD 05-15 11:00 → D.CVICU 05-15 12:01
PROVIDERS: ADMIT Thoracic Surgery (Cardiothoracic Vascular Surgery); ATTEND Thoracic Surgery (Cardiothoracic Vascular Surgery)
PROC: 021209W Bypass Coronary Artery, Three Arteries from Aorta with Autologous Venous Tissue, Open Approach (ICD-10-PCS; 2019-05-15)
PROC: 06BP4ZZ Excision of Right Saphenous Vein, Percutaneous Endoscopic Approach (ICD-10-PCS; 2019-05-15)
PROC: B24BZZ4 Ultrasonography of Heart with Aorta, Transesophageal (ICD-10-PCS; 2019-05-15)
PROC: 5A1221Z Performance of Cardiac Output, Continuous (ICD-10-PCS; 2019-05-15)
PROC: 02100Z9 Bypass Coronary Artery, One Artery from Left Internal Mammary, Open Approach (ICD-10-PCS; principal; 2019-05-15 07:30)
DX: I25.119 Atherosclerotic heart disease of native coronary artery with unspecified angina pectoris (principal); I31.9 Disease of pericardium, unspecified; I10 Essential (primary) hypertension; R42 Dizziness and giddiness; I45.10 Unspecified right bundle-branch block; I35.0 Nonrheumatic aortic (valve) stenosis

== ENCOUNTER 2019-06-05 01:33 | Emergency (ER) | payer MEDICARE ==
[~2019-06-05] VITALS: Ht 172.7 cm; Wt 79.5 kg
[~2019-06-05 01:33] MED LIST changes: +ASPIRIN EC81 M1 PO; +BANOPHEN25 M1; +CBD TINCTURE SL; +COLACE100 MG PO; +LIPITOR10 MG PO; +LOPRESSOR25 MG PO; +MAGNESIUM OXID250 MG; +PERCOCET 5-3251 TAB PO; +PLAVIX75 MG PO; +PROBIOTIC BLEN1 EACH
[2019-06-05 01:37] VITALS: Ht 172.7 cm; Wt 79.5 kg
[2019-06-05 02:43] LABS: BASOPHILS 0.5 % (0-2); EOSINOPHILS 8.2 % (0-7); HEMATOCRIT 34.6 % (42.0-54.0); HEMOGLOBIN 11.3 g/dL (13.5-17.5); IMMATURE GRANULOCYTES 0.4 % (0-5); LYMPHOCYTES 22.9 % (15-50); MCHC 32.7 g/dL (31.0-37.0); MCV 91.8 fL (80.0-100.0); MEAN PLATELET VOLUME 9.6 fL (7.4-10.4); MONOCYTES 13.9 % (2-11); NEUTROPHILS 54.1 % (40-80); RBC 3.77 10x6/uL (4.20-6.10); RDW 13.4 % (11.5-14.5); WBC 5.5 10x3/uL (4.8-10.8)
[2019-06-05 02:55] LABS: ALBUMIN 2.9 g/dL (3.4-5.0); ALKALINE PHOSPHATASE 117 U/L (46-116); ALT (SGPT) 32 U/L (10-68); BILIRUBIN - TOTAL 0.36 mg/dL (0.2-1.3); CALC OSMOLALITY 277 mosm/kg (275-300); CALCIUM 8.6 mg/dL (8.5-10.1); CARBON DIOXIDE 30.8 mmol/L (21.0-32.0); CHLORIDE - SERUM 99 mmol/L (98-107); CREATININE - SERUM 1.6 mg/dL (0.6-1.3); GLUCOSE 109 mg/dL (74-106); POTASSIUM - SERUM 3.8 mmol/L (3.5-5.1); PROTEIN - SERUM 7.6 g/dL (6.4-8.2); SODIUM 137 mmol/L (136-145); UREA NITROGEN 20 mg/dL (7-18); eGFR NON AFRICAN AMERICAN 45 mL/min (90-120)
[2019-06-05 02:58] LABS: PLATELET COUNT 339 10x3/uL (130-400)
[2019-06-05 02:59] LABS: APPEARANCE CLEAR (CLEAR); BILIRUBIN NEGATIVE (NEGATIVE); COLOR YELLOW (YELLOW); GLUCOSE NEGATIVE (NEGATIVE); KETONE NEGATIVE (NEGATIVE); NITRITE NEGATIVE (NEGATIVE); PROTEIN NEGATIVE (NEGATIVE); UROBILINOGEN NORMAL (NORMAL)
[2019-06-05 03:06] LABS: CKMB 1.2 U/L (0.0-3.6); CREATINE KINASE 62 UL (21-232); PRO BNP 1213 pg/mL (0-125)
[2019-06-05 03:10] LABS: TROPONIN-I < 0.017 ng/mL (0.000-0.060)
[2019-06-05 05:13] VITALS: BP 133/64
== END 2019-06-05 05:14 | disposition home or self-care (01) ==
LOC: D.ER 01:33
PROVIDERS: Family Medicine
DX: S80.10XA Contusion of unspecified lower leg, initial encounter (principal)

== ENCOUNTER → 2019-06-17 10:41 | Outpatient (CLI) | payer MEDICARE ==
[2019-06-05 01:37] VITALS: BMI 26.6
[2019-06-17 11:07] LABS: BASOPHILS 0.2 % (0-2); EOSINOPHILS 4.4 % (0-7); HEMOGLOBIN 12.2 g/dL (13.5-17.5); IMMATURE GRANULOCYTES 0.2 % (0-5); LYMPHOCYTES 21.2 % (15-50); MCH 29.4 pg (26.0-34.0); MCHC 32.1 g/dL (31.0-37.0); MCV 91.6 fL (80.0-100.0); MEAN PLATELET VOLUME 10.6 fL (7.4-10.4); RBC 4.15 10x6/uL (4.20-6.10); RDW 13.8 % (11.5-14.5); WBC 5.6 10x3/uL (4.8-10.8)
[2019-06-17 11:10] LABS: PLATELET COUNT 237 10x3/uL (130-400)
== END | disposition home or self-care (01) ==
LOC: D.RAD 10:41
PROVIDERS: ATTEND Thoracic Surgery (Cardiothoracic Vascular Surgery)
DX: Z48.89 Encounter for other specified surgical aftercare (principal)

== ENCOUNTER → 2019-07-01 10:23 | Outpatient (CLI) | payer MEDICARE ==
[2019-06-05 01:37] VITALS: BMI 26.6
[2019-07-01 11:23] LABS: BASOPHILS 0.7 % (0-2); EOSINOPHILS 10.5 % (0-7); HEMATOCRIT 40.1 % (42.0-54.0); HEMOGLOBIN 13.2 g/dL (13.5-17.5); LYMPHOCYTES 30.3 % (15-50); MCH 29.4 pg (26.0-34.0); MCHC 32.9 g/dL (31.0-37.0); MCV 89.3 fL (80.0-100.0); MEAN PLATELET VOLUME 10.7 fL (7.4-10.4); MONOCYTES 13.2 % (2-11); NEUTROPHILS 45.3 % (40-80); PLATELET COUNT 191 10x3/uL (130-400); RBC 4.49 10x6/uL (4.20-6.10); RDW 14.1 % (11.5-14.5); WBC 4.6 10x3/uL (4.8-10.8)
[2019-07-01 11:41] LABS: ALBUMIN 3.1 g/dL (3.4-5.0); ANION GAP 10.1 mmol/L (8-16); BILIRUBIN - TOTAL 0.48 mg/dL (0.2-1.3); CALCIUM 8.6 mg/dL (8.5-10.1); CARBON DIOXIDE 30.9 mmol/L (21.0-32.0); CREATININE - SERUM 1.4 mg/dL (0.6-1.3); PROTEIN - SERUM 7.3 g/dL (6.4-8.2)
== END | disposition home or self-care (01) ==
LOC: D.LAB 10:23
PROVIDERS: ATTEND Thoracic Surgery (Cardiothoracic Vascular Surgery)
DX: J90 Pleural effusion, not elsewhere classified (principal); D64.9 Anemia, unspecified

== ENCOUNTER → 2019-07-21 18:10 | Outpatient (CLI) | payer MEDICARE ==
[2019-06-05 01:37] VITALS: BMI 26.6
[2019-07-21 18:38] LABS: CHOL - HDL RATIO 5.1 ratio (2.3-4.9); LDL-HDL RATIO 3.3 ratio (1.5-3.5)
== END | disposition home or self-care (01) ==
LOC: D.LABREF 18:10
PROVIDERS: ATTEND Internal Medicine Cardiovascular Disease
DX: E78.5 Hyperlipidemia, unspecified (principal)

== ENCOUNTER 2020-01-26 07:21 | Day surgery (SDC) | payer MEDICARE ==
[~2020-01-26] VITALS: Ht 172.7 cm; Wt 90.5 kg
[2020-01-26 08:08] LABS: HEMATOCRIT 42.5 % (42.0-54.0); HEMOGLOBIN 14.3 g/dL (13.5-17.5); MCH 30.6 pg (26.0-34.0); MCHC 33.6 g/dL (31.0-37.0); MCV 90.8 fL (80.0-100.0); MEAN PLATELET VOLUME 11.8 fL (7.4-10.4); RBC 4.68 10x6/uL (4.20-6.10); RDW 13.9 % (11.5-14.5); WBC 3.8 10x3/uL (4.8-10.8)
[2020-01-26] MEDS ORDERED: BETAPACE 80 MG80 MG PO (08:12)
[2020-01-26 08:32] VITALS: BP 120/70; Ht 172.7 cm; Wt 90.5 kg
--- NOTE | 2020-01-26 13:50 | OP ---
PATIENT NAME: LUIS HILL JR MEDICAL RECORD: [id number] :[birth year] LOCATION:[facility] ADMISSION DATE: SURGEON: DILCIA LOERA MD DATE OF OPERATION: 01/26/2020 PROCEDURE: EGD with biopsy and colonoscopy with biopsy and polypectomy. REFERRING PHYSICIAN: Sherrill Hdez DO INDICATIONS: Mr. Hill is a very pleasant 74-year-old gentleman with a history of colon polyps and diverticulosis coli. He had been having symptoms of heartburn, nausea, epigastric abdominal pain which started in December 2018. He has had positive H. pylori breath test and was treated for H. pylori twice in December 2018 and again in February of 2019. Prior to the treatment for H. pylori, he was having some intermittent loose stools. He is still having some mild epigastric pain. He is having less diarrhea. He has been having some hematochezia with bowel movements. His last colonoscopy was 03/28/2016 with finding showing diverticulosis coli, hyperplastic colorectal polyps and mild internal hemorrhoids. He presents for outpatient EGD and colonoscopy. PREMEDICATIONS: Total IV anesthesia (propofol 500 mg); history of coronary artery disease. INSTRUMENT: IroFit video gastroscope and IroFit video colonoscope, pediatric. PROCEDURE AND FINDINGS: After receiving informed consent, his posterior pharynx was anesthetized with Cetacaine spray. He was placed in left lateral decubitus position and sedated as per anesthesia. After achieving adequate level of sedation, gastroscope was introduced per orally and advanced in duodenum without difficulty. Esophageal mucosa was without erythema, ulcers, strictures, masses, appeared normal and the GE junction. A small hiatal hernia was present. Gastric mucosa was notable for mild prepyloric and antral erythema and there was mild patchy erythema in the mid body of the stomach. Multiple antral biopsies were obtained to rule out Helicobacter pylori. No lesions were seen in the cardia, fundus, body or antrum of the stomach. Pylorus was patent and competent. Duodenal mucosa was without erythema or ulcers, appeared normal through the second portion. Biopsies were taken from the second portion of duodenum to rule out a celiac disease. Gastroscope was then withdrawn. Mr. Hill was then prepared for colonoscopy. Digital rectal exam was performed that showed no external hemorrhoidal tags, fissures or fistulas, normal sphincter tone, no palpable rectal masses. Colonoscope was introduced per rectally and advanced to the cecum without difficulty. Cecum, IC valve, and appendiceal orifice were identified. The terminal ileum was intubated and the distal small bowel mucosa was without erythema or ulcers. Biopsies were taken from the terminal ileum. As the colonoscope was withdrawn, careful inspection was made of the hendrickson of the colon. Overall, the mucosa had normal vascular and fold pattern. There was very minimal patchy erythema and the proximal ascending colon biopsies were taken from the ascending colon to rule out microscopic colitis. A few diverticula were seen in the transverse colon and then numerous diverticula were seen in the sigmoid colon. There were a few stool balls scattered the sigmoid colon (likely from having cleared out of diverticula with a bowel prep). In the distal sigmoid colon was a 0.3 cm sessile polyp removed with hot biopsy forcep technique. Retroflexion in rectum showed mild internal hemorrhoids. Overall, OPERATIVE REPORT [id number] LIZLUIS IVEY fair prep was present. Stool was collected from the colon for study. Mr. Hill tolerated the procedures well. No immediate complications. ASSESSMENT: 1. Small hiatal hernia. 2. Mild gastritis. 3. Moderate sigmoid and mild transverse diverticulosis coli. 4. Minimal nonspecific colitis involving the ascending colon, possibly prep related, status post biopsy. 5. Small sigmoid polyp status post polypectomy. 6. Mild internal hemorrhoids. 7. Hematochezia, secondary to internal hemorrhoids. RECOMMENDATIONS: 1. Follow up histopathology and stool studies. 2. Avoid aspirin, nonsteroidal anti-inflammatory drugs for 14 days post polypectomy. 3. High fiber diet. 4. Consider daily Metamucil for the bowel regimen. 5. Colonoscopy in 5 years. TRANSINT:[id number] Voice Confirmation ID: [id number] DOCUMENT ID: [id number] DILCIA LOERA MD at 1350 CC: SHERRILL HDEZ [id number] DICTATION DATE: 01/26/20 1023 PRODUCTION PROOFREADER: 01/26/20 1325 [facility] [address] [place] [id number]
--- NOTE | 2020-01-26 14:34 | NUR ---
1110 IV DC'D. CATHETER TIP INTACT. NO BLEEDING AT SITE AFTER HOLDING PRESSURE. BANDAID APPLIED. REVIEWED DISCHARGE INSTRUCTIONS WITH PT AND HIS . BOTH VOICE UNDERSTANDING OF INSTRUCTIONS. PT HAS MET DISCHARGE CRITERIA. PT IS WAITING FOR DR LOERA TO COME BY TO DISCUSS PROCEDURE FINDINGS.
== END 2020-01-26 11:50 | disposition home or self-care (01) ==
LOC: D.OPS 07:21
PROVIDERS: Anesthesiology; ATTEND Internal Medicine Gastroenterology
DX: Z86.010 Personal history of colon polyps (principal); R12 Heartburn; R11.0 Nausea; K63.5 Polyp of colon; J45.909 Unspecified asthma, uncomplicated

== ENCOUNTER → 2020-02-08 16:51 | Outpatient (CLI) | payer MEDICARE ==
[2020-01-26 08:32] VITALS: BMI 30.3
[~2020-02-08 16:51] MED LIST changes: +BETAPACE 80 MG80 MG PO
[2020-02-08 18:26] LABS: CHOL - HDL RATIO 6.4 ratio (2.3-4.9); LDL-HDL RATIO 3.6 ratio (1.5-3.5)
== END | disposition home or self-care (01) ==
LOC: D.LABREF 16:51
PROVIDERS: ATTEND Internal Medicine Cardiovascular Disease
DX: E78.5 Hyperlipidemia, unspecified (principal)

== ENCOUNTER 2021-01-03 13:13 | Observation (INO) | payer MEDICARE ==
[~2021-01-03] VITALS: Ht 172.7 cm; Wt 87.3 kg
[2021-02-24] MEDS ORDERED: CLARITIN 10 MG10 MG PO (10:30)
[2021-02-24] MEDS ORDERED: FUROSEMIDE40 MG PO (10:30)
[2021-02-24] MEDS ORDERED: K-DUR20 MEQ PO (10:31)
[2021-02-24 11:23] LABS: EOSINOPHILS 9.8 % (0-7); HEMATOCRIT 42.2 % (42.0-54.0); HEMOGLOBIN 14.5 g/dL (13.5-17.5); LYMPHOCYTES 29.9 % (15-50); MCHC 34.3 g/dL (31.0-37.0); MCV 90.6 fL (80.0-100.0); MONOCYTES 16.7 % (2-11); NEUTROPHILS 42.6 % (40-80); PLATELET COUNT 161 10x3/uL (130-400); RBC 4.66 10x6/uL (4.20-6.10); RDW 14.6 % (11.5-14.5); WBC 5.7 10x3/uL (4.8-10.8)
[2021-02-24 11:56] LABS: INR 1.25 (0.85-1.17); PROTIME 14.5 SECONDS (11.6-15.0)
[2021-02-24 11:57] LABS: ANION GAP 9.2 mmol/L (8-16); APTT 41.4 SECONDS (22.8-39.4); CARBON DIOXIDE 30.2 mmol/L (21.0-32.0); CREATININE - SERUM 1.5 mg/dL (0.6-1.3); POTASSIUM - SERUM 4.4 mmol/L (3.5-5.1)
[2021-02-24 12:20] LABS: BILIRUBIN NEGATIVE (NEGATIVE); KETONE NEGATIVE mg/dL (< 1+); NITRITE NEGATIVE (NEGATIVE); PH 5.5 (5.0-8.0); UROBILINOGEN NORMAL mg/dL (< 2)
[2021-02-28 08:51] LABS: SARS-CoV-2 ANTIGEN NEGATIVE- SARS-COV-2 (NEGATIVE)
[2021-02-28 10:04] VITALS: BP 144/76; BMI 29.2
[2021-02-28 14:28] VITALS: BP 113/65
--- NOTE | 2021-02-28 14:30 | NUR ---
PATIENT TO ROOM WITH VS STABLE. NO COMPLAINTS OR SIGNS OF DISTRESS. IV INTACT. SLING TO RUE CDI WITH DRAIN AND DRESSING ALSO CDI. BSCDS PLACED ON PATIENT AND ARE WORKING NOW. FAMILY AT BEDSIDE. EDUCATED PATIENT ON HOW TO USE IS. VERBALIZED UNDERSTANDING. CALL LIGHT WITHIN REACH.
[2021-02-28 14:57] VITALS: BP 113/65; Ht 172.7 cm; Wt 87.3 kg
--- NOTE | 2021-02-28 17:15 | NUR ---
PATIENT SITTING UP EATING AT THIS TIME. STILL NO COMPLAINTS OF PAIN. IV INTAQCT. BSCDS ON AND WORKING. VS STABLE. FAMILY AT BEDSIDE. CALL LIGHT WITHIN REACH. DRAIN INTACT.
--- NOTE | 2021-02-28 18:31 | MORECARE ---
CASE MANAGEMENT DISCHARGE SUMMARY PATIENT: LUIS HILL UNIT: [id number] ADM DATE: 02/28/21 AGE: 75 : 45 SEX: M [facility] AUTHOR: JESSICA,DOC PHYSICIAN: REFERRING PHYSICIAN: YOUSIF VERONICA DO DATE OF SERVICE: 02/28/21 Case Management Discharge Planning Summary DCP REVIEW SUMMARY ANTICIPATED D/C DATE: EXPECTED LOS : CASE STATUS: DCP Initiated INITIAL REVIEW: 02/28/2021 INITIAL REVIEWER: Aaron Arreaga FINAL DISCHARGE DISPOSITION: : FINAL REVIEWER: FINAL REVIEW DATE: DCP Focus Questions & Answers QUESTION: ANSWER : PATIENT: LUIS HILL ENCOUNTER: [id number] MEDICAL RECORD#: [id number] ADMISSION DATE: 02/28/2021 DISCHARGE DATE: ATTENDING MD: YOUSIF JON : AGE: 75 MARITAL STATUS: M DC PLAN ID: [id number] FACILITY: [facility] PRINTED ON: 02/28/21 18:31 CT All edits/amendments must be made on the electronic document DICTATION DATE: 02/28/211830 PSYCHOLOGIST CHIEF: DM 02/28/211830 RPT#: [id number] DC DATE: STATUS: ADM IN [facility] [address] [place] [address] END OF REPORT
--- NOTE | 2021-02-28 18:42 | MORECARE ---
CASE MANAGEMENT DISCHARGE SUMMARY PATIENT: LUIS HILL JR UNIT: [id number] ADM DATE: 02/28/21 AGE: 75 : 45 SEX: M ROOM/BED: D.2234 AUTHOR: MELCHOR LOPEZ PHYSICIAN: REFERRING PHYSICIAN: YOUSIF VERONICA DO DATE OF SERVICE: 02/28/21 Case Management Discharge Planning Summary COMMENTS ENTERED DATE: 02/28/21 18:32 CT COMMENT TYPE: Discharge Planning REVIEWER: Aaron Arreaga CM met with patient to complete DC plan and to evaluate needs. Patient lives independently with his spouse, Vonnie Contreras, . Patient stated that his home is safe and has electricity and running water. Patient stated that he can enter and move about his home without difficulty. Patient stated that he has no problems paying for medications and he fills his medications at [facility] in [place]. Patient stated that his primary care physician is Dr. Robins. At discharge, the patient plans to return home and feels this is a safe discharge. CM discussed availability of home health, rehab services, and medical equipment. Patient declined HHS, SNF, IPR, and DME. Patient voiced no other needs at this time and is satisfied with DC plan. Transportation provider at discharge will be with Faith. COOPER delivered, explained, signed by the patient, and placed in chart. Copy of form also left with the patient. CM will continue to follow and will assist as needed with dc plans/needs. DCP REVIEW SUMMARY ANTICIPATED D/C DATE: EXPECTED LOS : CASE STATUS: DCP Initiated INITIAL REVIEW: 02/28/2021 INITIAL REVIEWER: Aaron Arreaga FINAL DISCHARGE DISPOSITION: : FINAL REVIEWER: FINAL REVIEW DATE: DCP Focus Questions & Answers DCP Evaluation QUESTION: ANSWER Patient and/or caregiver agree upon recommended discharge plan? : Yes Family / Caregiver's ability to cope with chronic illness: : a. Adequate (ability to meet patient's medical needs, ensures patient attends medical appts.) Patient's current cognitive status: : *Oriented to person, place, situation, time and present Patient's ability to cope with chronic illness : d. No chronic illness Patient gives permission to discuss discharge plans with: (name, relationship and number) : spouse, Vonnie Contreras, Does the patient have the ability to pay for or attain post discharge needs / services? : Yes Functional screen assessment: : Basic needs can adequately be met by self Family / Caregiver's ability to cope with chronic illness: : a. Adequate (ability to meet patient's medical needs, ensures patient attends medical appts.) Physical Status: : Independent with ADL's Equipment needed for post hospitalization: : None Is there a likelihood that the patient will require additional services to return to the preadmission environment? : No Living Arrangements: : Home with Spouse/Significant Other Patient with capacity for self-care or can be cared for in same environment as prior to hospitalization? : Yes Baseline cognitive status: : *Oriented to person, place, situation, time and present Physical environment modification needed / anticipated for discharge: : No Medication Management: : Patient states can read and understand medication labels Medication Management: : Patient states can afford medications Pharmacy name(s): : [facility] in [place] Does Patient have transportation to get home and to follow-up medical appointments when discharged from the hospital? : Yes Would patient like to participate in any Care Coordination programs (if applicable): : Not applicable Does the patient have electricity at home? : Yes Does the patient have running water in their house? : Yes Equipment in use: : None Mental health screen: : No mental health history DCP Re-evaluation QUESTION: ANSWER Would patient like to participate in any Care Coordination programs (if applicable): : Not applicable PATIENT: LUIS HILL ENCOUNTER: [id number] MEDICAL RECORD#: [id number] ADMISSION DATE: 02/28/2021 DISCHARGE DATE: ATTENDING MD: YOUSIF JON : AGE: 75 MARITAL STATUS: M DC PLAN ID: [id number] FACILITY: [facility] PRINTED ON: 02/28/21 18:42 CT All edits/amendments must be made on the electronic document DICTATION DATE: 02/28/211841 RIP/MOULD OPERATOR: NICO 02/28/211841 RPT#: [id number] DC DATE: STATUS: ADM IN [facility] [address] [place] [address] END OF REPORT
--- NOTE | 2021-02-28 19:00 | NUR ---
ASSISTED PATIENT UP TO BR. VOIDED WITH NO PROBLEMS. BACK TO BED. SCDS PLACED BACK ON PATIENT. DRESSING AND DRAIN STILL CLEAN AND DRY. DRAIN EMPTIED. CALL LIGHT WITHIN REACH. PATIENT USING IS FREQUENTLY WITH NO PROBLEMS. FAMILY AT BEDSIDE.
[2021-02-28 20:00] VITALS: BP 134/61
[2021-03-01] VITALS: BP 109/49
--- NOTE | 2021-03-01 01:02 | NUR ---
I have reviewed this patient and I concur with the Shift Assessment completed by the Licensed Practical Nurse today this shift.
[2021-03-01 04:00] VITALS: BP 99/46
[2021-03-01 06:20] LABS: BASOPHILS 0.1 % (0-2); EOSINOPHILS 0.1 % (0-7); HEMOGLOBIN 12.2 g/dL (13.5-17.5); LYMPHOCYTES 12.1 % (15-50); MCH 31.2 pg (26.0-34.0); MCHC 34.8 g/dL (31.0-37.0); MCV 89.7 fL (80.0-100.0); MEAN PLATELET VOLUME 9.8 fL (7.4-10.4); MONOCYTES 11.4 % (2-11); NEUTROPHILS 76.3 % (40-80); RBC 3.91 10x6/uL (4.20-6.10); RDW 14.2 % (11.5-14.5); WBC 8.5 10x3/uL (4.8-10.8)
[2021-03-01 06:30] LABS: ALBUMIN 2.5 g/dL (3.4-5.0); ANION GAP 12.2 mmol/L (8-16); BILIRUBIN - TOTAL 0.21 mg/dL (0.2-1.3); CARBON DIOXIDE 24.9 mmol/L (21.0-32.0); CREATININE - SERUM 1.3 mg/dL (0.6-1.3); POTASSIUM - SERUM 4.1 mmol/L (3.5-5.1); PROTEIN - SERUM 6.1 g/dL (6.4-8.2)
--- NOTE | 2021-03-01 06:35 | OP ---
PATIENT NAME: LUIS HILL JR MEDICAL RECORD: [id number] :45 LOCATION:D.[id number] ADMISSION DATE:02/28/21 SURGEON: DEREK VERONICA DO DATE OF OPERATION: 02/28/2021 PROCEDURE PERFORMED: Right reverse total shoulder arthroplasty. PREOPERATIVE DIAGNOSIS: Right shoulder rotator cuff tear arthropathy. POSTOPERATIVE DIAGNOSIS: Right shoulder rotator cuff tear arthropathy. INDICATIONS: Mr. Hill is a 75-year-old male who has had right shoulder pain for years. He has had problems with it and got to the point where he was tired of dealing with pain and wanted something done surgically. He is aware of the risks of it including infection, bleeding, fracture, damage to nerve or vessel, need for further surgery, continued pain, loosening of the implants, need for further surgery, blood loss and even and he signed a consent. SURGEON: Derek Veronica DO DESCRIPTION OF PROCEDURE: The patient received a block by anesthesia in preoperative area and taken to the operative suite, laid in supine position, given general anesthetic and LMA was placed. He was given 900 mg of clindamycin. He was then placed in the beach chair position. Right shoulder was prepped and draped in sterile fashion. Timeout was performed. Everyone was in agreeance with the correct side, site, patient and procedure. I then made an incision along the deltopectoral interval and made careful dissection down to the cephalic, took the cephalic vein laterally and then removed the adhesions of the deltoid with a [place], put a deltoid retractor and then released the proximal centimeter of the pec on the humerus. I then tied the long head of the biceps tendon to that and then cut the long head of the biceps tendon followed up into the shoulder joint and through the rotator interval. I then tagged the subscapularis tendon and peeled it off of the humeral head and lesser tuberosity, opening up the shoulder joint. I then used a guide, marked it and cut the humeral head and removed it, and exposed the glenoid, removed the labrum of the glenoid and put a centering pin in. Once the centering pin was in appropriate position, I then reamed and impacted on the baseplate, put a 35 central screw and then 3 peripheral locking screws. The anterior superior was a 30, posterior inferior was 20 and the posterior superior was a 25. I then impacted on the glenosphere +3 on a neutral offset and then exposed the humerus, reamed and then broached to a 13 stem, put on a trial, reduced it and it fit very well with good tension on the deltoid as well as the conjoined tendon and had good range of motion. I then dislocated that, removed the trials and irrigated and then put in the actual implants and reduced it. He had good range of motion and no impingement seen and good tension on the conjoined tendon and deltoid. I then irrigated with povidone-iodine and 500 mL normal saline solution and put in a drain exiting posteriorly and then put in Aurora, and vancomycin and tobramycin powder. Robel Billings, certified surgical central supply assistant then closed the deltopectoral interval with #1 Vicryl in a [id number]-fr-jgoes fashion and then 2-0 Vicryl in inverted interrupted fashion on the skin, 4-0 Monocryl ran around the skin and Prineo glue on the skin. Once that had dried, Telfa and Tegaderm, and two Tegaderms on the drain site holding it in. He was then awakened and taken to recovery in stable condition and given another gram of TXA as it was prior to starting. OPERATIVE REPORT [id number] LUIS HILL JR TRANSINT:[id number] Voice Confirmation ID: [id number] DOCUMENT ID: [id number] DEREK VERONICA DO at 0635 CC: [id number] DICTATION DATE: 02/28/21 135 CASH MANAGEMENT COORDINATOR: 02/28/21 1511 ADM IN [facility] [address] [id number]
[2021-03-01 06:40] LABS: PLATELET COUNT 122 10x3/uL (130-400)
[2021-03-01] MEDS ORDERED: HYDROCODON-ACE1 EA10 PO (07:07)
[2021-03-01 07:57] VITALS: BP 129/51
--- NOTE | 2021-03-01 08:48 | NUR ---
PATIENT SITTING UP IN BED EATING. PAIN MEDS AND SCHEDULED MEDS GIVEN. IV INTACT. DRAIN INTACT. FAMILY AT BEDSIDE. BSCDS ON AND WORKING. CALL LIGHT WITHIN REACH.
[2021-03-01 12:06] VITALS: BP 142/63
--- NOTE | 2021-03-01 12:15 | NUR ---
PATIENT SITTING UP IN CHAIR EATING AT THIS TIME. IV INTACT. NO COMPLAINTS. DRAIN INTACT. CALL LIGHT WITHIN REACH. FAMILY AT BEDSIDE.
--- NOTE | 2021-03-01 15:07 | NUR ---
PATIENT DRAIN REMOVED AT THIS TIME. PATIENT TOLERATED WITH SMALL AMOUNT OF PAIN. DRESSING CHANGED TO SHOULDER ORDERED. EXTRA DRESSINGS GIVEN TO PATIENT TO TAKE HOME. IV REMOVED WITH CATH TIP INTACT. PATIENT WAITING ON DC PAPERS TO LEAVE. FAMILY AT BEDSIDE. CALL LIGHT WITHIN REACH.
--- NOTE | 2021-03-01 15:45 | NUR ---
PATIENT ESCORTED OUT OF HOSPITAL VIA WC TO PRIVATE VEHICLE WITH PERSONAL BELONGINGS.
--- NOTE | 2021-03-01 16:06 | MORECARE ---
CASE MANAGEMENT DISCHARGE SUMMARY PATIENT: LUIS HILL JR UNIT: [id number] ADM DATE: 02/28/21 AGE: 75 : 45 SEX: M ROOM/BED: D.2234 AUTHOR: MELCHOR LOPEZ PHYSICIAN: REFERRING PHYSICIAN: YOUSIF VERONICA DO DATE OF SERVICE: 03/01/21 Case Management Discharge Planning Summary COMMENTS ENTERED DATE: 02/28/21 18:32 CT COMMENT TYPE: Discharge Planning REVIEWER: Aaron Arreaga CM met with patient to complete DC plan and to evaluate needs. Patient lives independently with his spouse, Vonnie Contreras, . Patient stated that his home is safe and has electricity and running water. Patient stated that he can enter and move about his home without difficulty. Patient stated that he has no problems paying for medications and he fills his medications at [facility] in [place]. Patient stated that his primary care physician is Dr. Robins. At discharge, the patient plans to return home and feels this is a safe discharge. CM discussed availability of home health, rehab services, and medical equipment. Patient declined HHS, SNF, IPR, and DME. Patient voiced no other needs at this time and is satisfied with DC plan. Transportation provider at discharge will be with [facility]. COOPER delivered, explained, signed by the patient, and placed in chart. Copy of form also left with the patient. CM will continue to follow and will assist as needed with dc plans/needs. DCP REVIEW SUMMARY ANTICIPATED D/C DATE: EXPECTED LOS : CASE STATUS: DCP Initiated INITIAL REVIEW: 02/28/2021 INITIAL REVIEWER: Aaron Arreaga FINAL DISCHARGE DISPOSITION: : FINAL REVIEWER: FINAL REVIEW DATE: DCP Focus Questions & Answers DCP Evaluation QUESTION: ANSWER Patient and/or caregiver agree upon recommended discharge plan? : Yes Family / Caregiver's ability to cope with chronic illness: : a. Adequate (ability to meet patient's medical needs, ensures patient attends medical appts.) Patient's current cognitive status: : *Oriented to person, place, situation, time and present Patient's ability to cope with chronic illness : d. No chronic illness Patient gives permission to discuss discharge plans with: (name, relationship and number) : spouse, Vonnie Contreras, Does the patient have the ability to pay for or attain post discharge needs / services? : Yes Functional screen assessment: : Basic needs can adequately be met by self Family / Caregiver's ability to cope with chronic illness: : a. Adequate (ability to meet patient's medical needs, ensures patient attends medical appts.) Physical Status: : Independent with ADL's Equipment needed for post hospitalization: : None Is there a likelihood that the patient will require additional services to return to the preadmission environment? : No Living Arrangements: : Home with Spouse/Significant Other Patient with capacity for self-care or can be cared for in same environment as prior to hospitalization? : Yes Baseline cognitive status: : *Oriented to person, place, situation, time and present Physical environment modification needed / anticipated for discharge: : No Medication Management: : Patient states can read and understand medication labels Medication Management: : Patient states can afford medications Pharmacy name(s): : [facility] in [place] Does Patient have transportation to get home and to follow-up medical appointments when discharged from the hospital? : Yes Would patient like to participate in any Care Coordination programs (if applicable): : Not applicable Does the patient have electricity at home? : Yes Does the patient have running water in their house? : Yes Equipment in use: : None Mental health screen: : No mental health history DCP Re-evaluation QUESTION: ANSWER Would patient like to participate in any Care Coordination programs (if applicable): : Not applicable PATIENT: LUIS HILL ENCOUNTER: [id number] MEDICAL RECORD#: [id number] ADMISSION DATE: 02/28/2021 DISCHARGE DATE: 03/01/2021 ATTENDING MD: YOUSIF JON : AGE: 75 MARITAL STATUS: M DC PLAN ID: [id number] FACILITY: [facility] PRINTED ON: 03/01/21 16:06 CT All edits/amendments must be made on the electronic document DICTATION DATE: 03/01/211605 FRESH WORK INSPECTOR: NICO 03/01/211605 RPT#: [id number] DC DATE:03/01/21 STATUS: DIS IN [facility] [address] [place] [address] END OF REPORT
--- NOTE | 2021-03-02 07:58 | MORECARE ---
CASE MANAGEMENT DISCHARGE SUMMARY PATIENT: LUIS HILL JR UNIT: [id number] ADM DATE: 02/28/21 AGE: 75 : 45 SEX: M ROOM/BED: D.2234 AUTHOR: MELCHOR LOPEZ PHYSICIAN: REFERRING PHYSICIAN: YOUSIF VERONICA DO DATE OF SERVICE: 03/02/21 Case Management Discharge Planning Summary COMMENTS ENTERED DATE: 02/28/21 18:32 CT COMMENT TYPE: Discharge Planning REVIEWER: Aaron Arreaga CM met with patient to complete DC plan and to evaluate needs. Patient lives independently with his spouse, Vonnie Contreras, . Patient stated that his home is safe and has electricity and running water. Patient stated that he can enter and move about his home without difficulty. Patient stated that he has no problems paying for medications and he fills his medications at [facility] in [place]. Patient stated that his primary care physician is Dr. Robins. At discharge, the patient plans to return home and feels this is a safe discharge. CM discussed availability of home health, rehab services, and medical equipment. Patient declined HHS, SNF, IPR, and DME. Patient voiced no other needs at this time and is satisfied with DC plan. Transportation provider at discharge will be with [facility]. COOPER delivered, explained, signed by the patient, and placed in chart. Copy of form also left with the patient. CM will continue to follow and will assist as needed with dc plans/needs. DCP REVIEW SUMMARY ANTICIPATED D/C DATE: EXPECTED LOS : CASE STATUS: DCP Initiated INITIAL REVIEW: 02/28/2021 INITIAL REVIEWER: Aaron Arreaga FINAL DISCHARGE DISPOSITION: : FINAL REVIEWER: FINAL REVIEW DATE: DCP Focus Questions & Answers DCP Evaluation QUESTION: ANSWER Patient and/or caregiver agree upon recommended discharge plan? : Yes Family / Caregiver's ability to cope with chronic illness: : a. Adequate (ability to meet patient's medical needs, ensures patient attends medical appts.) Patient's current cognitive status: : *Oriented to person, place, situation, time and present Patient's ability to cope with chronic illness : d. No chronic illness Patient gives permission to discuss discharge plans with: (name, relationship and number) : spouse, Vonnie Contreras, Does the patient have the ability to pay for or attain post discharge needs / services? : Yes Functional screen assessment: : Basic needs can adequately be met by self Family / Caregiver's ability to cope with chronic illness: : a. Adequate (ability to meet patient's medical needs, ensures patient attends medical appts.) Physical Status: : Independent with ADL's Equipment needed for post hospitalization: : None Is there a likelihood that the patient will require additional services to return to the preadmission environment? : No Living Arrangements: : Home with Spouse/Significant Other Patient with capacity for self-care or can be cared for in same environment as prior to hospitalization? : Yes Baseline cognitive status: : *Oriented to person, place, situation, time and present Physical environment modification needed / anticipated for discharge: : No Medication Management: : Patient states can read and understand medication labels Medication Management: : Patient states can afford medications Pharmacy name(s): : [facility] in [place] Does Patient have transportation to get home and to follow-up medical appointments when discharged from the hospital? : Yes Would patient like to participate in any Care Coordination programs (if applicable): : Not applicable Does the patient have electricity at home? : Yes Does the patient have running water in their house? : Yes Equipment in use: : None Mental health screen: : No mental health history DCP Re-evaluation QUESTION: ANSWER Would patient like to participate in any Care Coordination programs (if applicable): : Not applicable PATIENT: LIUS HILL ENCOUNTER: [id number] MEDICAL RECORD#: [id number] ADMISSION DATE: 02/28/2021 DISCHARGE DATE: 03/01/2021 ATTENDING MD: YOUSIF JON : AGE: 75 MARITAL STATUS: M DC PLAN ID: [id number] FACILITY: [facility] PRINTED ON: 03/02/21 7:58 CT All edits/amendments must be made on the electronic document DICTATION DATE: 03/02/21757 COMMERCIAL REPRESENTATIVE: NICO 03/02/21757 RPT#: [id number] DC DATE:03/01/21 STATUS: DIS IN [facility] [address] [place] [address] END OF REPORT
== END 2021-03-01 15:54 | disposition home or self-care (01) ==
LOC: D.MS 02-28 08:15 → D.SDCHOLD 02-28 08:15 → D.CLR 02-28 09:30 → D.SDCHOLD 02-28 09:30 → D.MS 02-28 13:46 → OBSVTIME 02-28 13:49 → D.MS 03-01 15:54
PROVIDERS: Family Medicine; ADMIT Orthopaedic Surgery; ATTEND Orthopaedic Surgery
DX: M75.101 Unspecified rotator cuff tear or rupture of right shoulder, not specified as traumatic (principal); I10 Essential (primary) hypertension; I25.10 Atherosclerotic heart disease of native coronary artery without angina pectoris; J45.909 Unspecified asthma, uncomplicated; K21.9 Gastro-esophageal reflux disease without esophagitis; N40.0 Benign prostatic hyperplasia without lower urinary tract symptoms; K57.90 Diverticulosis of intestine, part unspecified, without perforation or abscess without bleeding; M19.90 Unspecified osteoarthritis, unspecified site; G89.29 Other chronic pain; M54.9 Dorsalgia, unspecified

== ENCOUNTER → 2021-01-12 11:01 | Outpatient (CLI) | payer MEDICARE ==
[2020-01-26 08:32] VITALS: BMI 30.3
== END | disposition home or self-care (01) ==
LOC: D.HCCECHO 11:01
PROVIDERS: ATTEND Internal Medicine Cardiovascular Disease
DX: I25.10 Atherosclerotic heart disease of native coronary artery without angina pectoris (principal)

== ENCOUNTER 2021-02-24 08:00 | Outpatient (CLI) | payer MEDICARE ==
[2021-02-24] MEDS ORDERED: FUROSEMIDE40 MG PO (10:30)
[2021-02-24] MEDS ORDERED: CLARITIN 10 MG10 MG PO (10:30)
[2021-02-24] MEDS ORDERED: K-DUR20 MEQ PO (10:31)
[2021-02-28 14:57] VITALS: BMI 29.2
== END 2021-02-24 08:01 | disposition home or self-care (01) ==
LOC: D.PAN 08:00
PROVIDERS: ATTEND Orthopaedic Surgery
DX: M75.101 Unspecified rotator cuff tear or rupture of right shoulder, not specified as traumatic (principal); I10 Essential (primary) hypertension; I25.10 Atherosclerotic heart disease of native coronary artery without angina pectoris; J45.909 Unspecified asthma, uncomplicated; K21.9 Gastro-esophageal reflux disease without esophagitis; N40.0 Benign prostatic hyperplasia without lower urinary tract symptoms; K57.90 Diverticulosis of intestine, part unspecified, without perforation or abscess without bleeding; M19.90 Unspecified osteoarthritis, unspecified site; G89.29 Other chronic pain